=== PATIENT | female | born 1975 | race Caucasian/White ===

== ENCOUNTER 2018-02-22 10:11 | Observation (INO) | payer SELFPAY ==
[~2018-02-22] VITALS: Ht 165.1 cm; Wt 115.0 kg
[2018-02-22] VITALS (7 sets, daily range): BP systolic 120–170; BP diastolic 71–101; PULSE 94–115; RESP 18–20; TEMP 97.3–98.5; O2SAT 98–100
[~2018-02-22 10:11] MED LIST: PENI500T PO; Z.0.NO CURRENT MEDS
[2018-02-22] MEDS ORDERED: IBUP200C (10:16)
[2018-02-22] MEDS ORDERED: TYLE325T PO (10:16)
[2018-02-22] MEDS ORDERED: ASPI81CH7 CHEW (10:16)
[2018-02-22] MEDS ORDERED: LORazepam 2 MG/ML VIAL IV PUSH SCH (10:30)
[2018-02-22] MEDS ORDERED: ASPIRIN 81 MG CHEW TAB PO ONE (10:30)
[2018-02-22] MEDS ORDERED: SODIUM CHLORIDE 0.9% FLUSH 10 ML FLUSH IVF PRN (10:30)
[2018-02-22 10:32] LABS: AUTOMATED NEUTROPHIL # 8.2 TH/MM3 (1.8-7.7); BASOPHIL # 0.2 TH/MM3 (0-0.2); BASOPHIL % 1.2 % (0.0-2.0); EOSINOPHIL # 0.5 TH/MM3 (0-0.4); EOSINOPHIL % 3.3 % (0.0-4.0); HEMATOCRIT 42.6 % (35.0-46.0); HEMOGLOBIN 14.6 GM/DL (11.6-15.3); LYMPH % 31.7 % (9.0-44.0); LYMPHOCYTE # 4.4 TH/MM3 (1.0-4.8); MEAN CELL VOLUME 84.8 FL (80.0-100.0); MEAN CORPUSCULAR HGB CONC 34.2 % (32.0-36.0); MEAN PLATELET VOLUME 8.5 FL (7.0-11.0); MONO % 4.1 % (0.0-8.0); MONOCYTE # 0.6 TH/MM3 (0-0.9); NEUT % 59.7 % (16.0-70.0); PLATELET COUNT 353 TH/MM3 (150-450); RED BLOOD COUNT 5.02 MIL/MM3 (4.00-5.30); RED CELL DISTRIBUTION WIDTH 13.2 % (11.6-17.2); WHITE BLOOD COUNT 13.9 TH/MM3 (4.0-11.0)
[2018-02-22 10:43] LABS: CHLORIDE 102 MEQ/L (98-107); SODIUM (NA) 137 MEQ/L (136-145)
[2018-02-22 10:47] LABS: BICARBONATE 24.7 MEQ/L (21.0-32.0); CALCIUM 8.8 MG/DL (8.5-10.1); GLUCOSE,RANDOM 94 MG/DL (74-106)
[2018-02-22 10:48] LABS: BLOOD UREA NITROGEN 12 MG/DL (7-18)
[2018-02-22 10:51] LABS: CREATININE 0.95 MG/DL (0.50-1.00); GLOMERULAR FILTRATION RATE 65 ML/MIN (>89)
--- NOTE | 2018-02-22 10:53 | RADRPT ---
EXAM DATE/TIME: 02/22/2018 10:32 [place] COMPARISON: No previous studies available for comparison. INDICATIONS : Chest and upper back pain. MEDICAL HISTORY : None. SURGICAL HISTORY : None. ENCOUNTER: Initial ACUITY: 3 days PAIN SCORE: 8/10 LOCATION: Bilateral chest FINDINGS: A single view of the chest demonstrates the lungs to be symmetrically aerated without evidence of mas s, infiltrate or effusion. The cardiomediastinal contours are unremarkable. Osseous structures are intact. CONCLUSION: No acute intrathoracic disease. Baljinder Garner MD on February 22, 2018 at 10:51 Board Certified Radiologist. This report was verified electronically.
[2018-02-22 10:56] LABS: TROPONIN I LESS THAN 0.02 NG/ML (0.02-0.05)
--- NOTE | 2018-02-22 10:59 | PD ---
HPI . Chest pain Chief Complaint: Chest Pain Time Seen by Provider: 10:17 Travel History International Travel<30 days: No Contact w/Intl Traveler<30days: No Traveled to known affect area: No History of Present Illness HPI This patient presents with a four-day history of chest pain. It has been intermittent. It became worse last night. She describes a pressure-like sensation which she rates 9/10. She states that the pain radiates through to her back. Her chest pain is associated with tingling in her hands and the sensation that her throat was swelling. She also reports the urge to burp, occasional cough and dizziness. She states that she took aspirin last night with no relief of her symptoms. PFSH Past Medical History Diminished Hearing: No Influenza Vaccination: No ?: Not LMP: 02/17/2018 : 1 Para: 1 Past Surgical History Tonsillectomy: Yes Social History Alcohol Use: Yes (OCCASSIONAL) Tobacco Use: No Substance Use: No Allergies-Medications (Allergen,Severity, Reaction): Coded Allergies: No Known Allergies (Verified Adverse Reaction, Unknown, 02/22/18) Reported Meds & Prescriptions Reported Meds & Active Scripts Active Reported Tylenol (Acetaminophen) 325 Mg Tab 0 PO Q4H PRN Aspirin Children's (Aspirin) 81 Mg Chew 81 Mg CHEW DAILY Ibuprofen 200 Mg Cap 200 Mg Q4H PRN Review of Systems Except as stated in HPI: all other systems reviewed are Neg General / Constitutional: No: Fever, Chills HENT: Positive: Lightheadedness Cardiovascular: Positive: Chest Pain or Discomfort Respiratory: Positive: Cough Neurologic: Positive: Paresthesia Physical Exam Narrative GENERAL: Patient looks very anxious. SKIN: warm/dry. Normal color. HEAD: Normocephalic. Atraumatic. EYES: Pupils equal and round. No scleral icterus. No injection or drainage. ENT: No nasal bleeding or discharge. Mucous membranes pink and moist. NECK: Trachea midline. Full range of motion without pain.. CARDIOVASCULAR: Sinus tachycardia. Heart sounds normal. RESPIRATORY: No accessory muscle use. Clear to auscultation. Breath sounds equal bilaterally. GASTROINTESTINAL: Abdomen soft. Nontender. Bowel sounds present. Nondistended. MUSCULOSKELETAL: No obvious deformities. NEUROLOGICAL: Awake and alert. No obvious cranial nerve deficits. Motor grossly within normal limits. Normal speech. PSYCHIATRIC: Appropriate mood and affect; insight and judgment normal. Data Data Last Documented VS Vital Signs Date Time Temp Pulse Resp B/P (MAP) Pulse Ox O2 Delivery O2 Flow Rate FiO2 02/22/18 11:16 105 18 123/71 (88) 99 02/22/18 10:29 Room Air 02/22/18 10:12 98.0 Orders Orders Electrocardiogram (02/22/18 10:17) Basic Metabolic Panel (Bmp) (02/22/18 10:17) Complete Blood Count With Diff (02/22/18 10:17) Magnesium (Mg) (02/22/18 10:17) Troponin I (02/22/18 10:17) Chest, Single Ap (02/22/18 10:17) Ecg Monitoring (02/22/18 10:17) Iv Access Insert/Monitor (02/22/18 10:17) Oximetry (02/22/18 10:17) Aspirin Chew (Aspirin Chew) (02/22/18 10:30) Sodium Chloride 0.9% Flush (Ns Flush) (02/22/18 10:30) Lorazepam Inj (Ativan Inj) (02/22/18 10:30) Morphine Inj (Morphine Inj) (02/22/18 11:15) Ondansetron Inj (Zofran Inj) (02/22/18 11:15) Admit Order (Ed Use Only) (02/22/18 ) Labs Laboratory Tests Test 02/22/18 10:25 White Blood Count 13.9 TH/MM3 Red Blood Count 5.02 MIL/MM3 Hemoglobin 14.6 GM/DL Hematocrit 42.6 % Mean Corpuscular Volume 84.8 FL Mean Corpuscular Hemoglobin 29.0 PG Mean Corpuscular Hemoglobin Concent 34.2 % Red Cell Distribution Width 13.2 % Platelet Count 353 TH/MM3 Mean Platelet Volume 8.5 FL Neutrophils (%) (Auto) 59.7 % Lymphocytes (%) (Auto) 31.7 % Monocytes (%) (Auto) 4.1 % Eosinophils (%) (Auto) 3.3 % Basophils (%) (Auto) 1.2 % Neutrophils # (Auto) 8.2 TH/MM3 Lymphocytes # (Auto) 4.4 TH/MM3 Monocytes # (Auto) 0.6 TH/MM3 Eosinophils # (Auto) 0.5 TH/MM3 Basophils # (Auto) 0.2 TH/MM3 CBC Comment DIFF FINAL Differential Comment Blood Urea Nitrogen 12 MG/DL Creatinine 0.95 MG/DL Random Glucose 94 MG/DL Calcium Level 8.8 MG/DL Magnesium Level 2.0 MG/DL Sodium Level 137 MEQ/L Potassium Level 4.4 MEQ/L Chloride Level 102 MEQ/L Carbon Dioxide Level 24.7 MEQ/L Anion Gap 10 MEQ/L Estimat Glomerular Filtration Rate 65 ML/MIN Troponin I LESS THAN 0.02 NG/ML MDM Medical Decision Making Medical Screen Exam Complete: Yes Emergency Medical Condition: Yes Interpretation(s) EKG shows a sinus tachycardia at [address] segment elevation or depression. Differential Diagnosis Differential diagnosis of chest pain includes but is not limited to musculoskeletal pain, pulmonary embolism, acute coronary syndrome, pneumonia, pleurisy Narrative Course This patient presents with chest pain. She has had intermittent chest pain for the last 4 days which has been getting progressively worse. She appears very anxious. So, in addition to aspirin, I have given her Ativan. She has been placed on the monitor, an IV has been started and a cardiac workup is in process. Last Impressions Chest X-Ray 02/22/18 1017 Signed Impressions: Service Date/Time: Thursday, February 22, 2018 10:32 - CONCLUSION: No acute intrathoracic disease. Baljinder Garner MD CBC & BMP Diagram 02/22/18 10:25 Calcium Level 8.8, Magnesium Level 2.0 trop < 0.02 The patient and her family are very anxious and did not want to leave here until the exact diagnosis is not known. I have offered admission to the chest pain center. They are in agreement. Physician Communication Physician Communication Dr. Pham will admit the patient to the chest pain center. Diagnosis Primary Impression: Chest pain Qualified Codes: R07.9 - Chest pain, unspecified Admitting Information Admitting Physician Requests: Observation Condition: Stable Grace Her MD Feb 22, 2018 10:59
[2018-02-22] MEDS ORDERED: MORPHINE SULFATE 4 MG/ML INJ IV ONE (11:15)
[2018-02-22] MEDS ORDERED: ONDANSETRON HCL 4 MG/2 ML VIAL IV PUSH ONE (11:15)
[2018-02-22] MEDS ORDERED: SODIUM CHLORIDE 0.9% FLUSH 10 ML FLUSH IV FLUSH PRN (12:30)
[2018-02-22] MEDS: SODIUM CHLOR 0.9% 1000 ML INJ 1,000 ML IV SCH ×2 (12:30→14:43)
[2018-02-22] MEDS ORDERED: ACETAMINOPHEN 500 MG CPLT PO PRN (12:30)
[2018-02-22] MEDS ORDERED: MORPHINE SULFATE 2 MG/ML INJ IV PUSH PRN (12:30)
[2018-02-22] MEDS ORDERED: NITROGLYCERIN 0.4 MG SL 25 TABS/BTL SL PRN (12:30)
[2018-02-22] MEDS ORDERED: ACETAMINOPHEN/HYDROcodone 325 MG/7.5 MG TAB PO PRN (12:30)
[2018-02-22] MEDS ORDERED: ONDANSETRON HCL 4 MG/2 ML VIAL IV PUSH PRN (12:30)
[2018-02-22] MEDS ORDERED: PANTOPRAZOLE SOD 40 MG DELAYED RELEASE TAB PO SCH (13:45)
[2018-02-22] MEDS ORDERED: ALUMINUM/MAGNESIUM/SIMETH 30 ML CUP PO ONE (14:00)
[2018-02-22] MEDS ORDERED: diphenhydrAMINE HCL ELIXIR 12.5 MG/5 ML CUP PO ONE (14:00)
[2018-02-22] MEDS ORDERED: LIDOCAINE VISCOUS 2% SOLN 15 ML UDC SWISH-SWAL ONE (14:00)
[2018-02-22 14:06] LABS: TROPONIN I LESS THAN 0.02 NG/ML (0.02-0.05)
--- NOTE | 2018-02-22 14:07 | HHI.HP ---
HPI Service [facility] Primary Care Physician No Primary Care Physician Admission Diagnosis chest pain Diagnoses: (1) Chest pain Diagnosis: Principal Chief Complaint: Chest pain Travel History International Travel<30 Days: No Contact w/Intl Traveler <30 Da: No Traveled to Known Affected Are: No History of Present Illness 42-year-old female with no history of any medical issues who presented the hospital because of a four-day history of intermittent chest discomfort. Patient states that the pain is located in her epigastric midsternal area radiating into her back. She states that it can get up to a 10/ 10 on a pain scale. She indicates that it is worse whenever she eats food, worse whenever she lays flat, states that she feels like she always has to belch but nothing happens. She has had some nausea, some lightheadedness. Denies any vomiting, shortness of breath, dyspnea. Pain is not exacerbated by any exertion. Patient was evaluated in emergency department and plans were for her to be discharged home, however family is concerned that there is underlying issues and requested that the patient be observed in the hospital for further workup and management. Patient indicates that she has never undergone any type of cardiac workup in the past. Patient's only risk factor for underlying cardiac disease is body habitus with BMI 42.2. Patient was given morphine and aspirin emergency department without any relief. Review of Systems Cardiovascular: COMPLAINS OF: Chest pain Except as stated in HPI: all other systems reviewed are Neg Past Family Social History Past Medical History Herniated disc L5 Past Surgical History Tonsillectomy Reported Medications Reported Meds & Active Scripts Active Reported Tylenol (Acetaminophen) 325 Mg Tab 0 PO Q4H PRN Aspirin Children's (Aspirin) 81 Mg Chew 81 Mg CHEW DAILY Ibuprofen 200 Mg Cap 200 Mg Q4H PRN Allergies: Coded Allergies: No Known Allergies (Verified Allergy, Unknown, 02/22/18) Family History Reviewed is significant for mother with COPD. No family history of heart disease, diabetes, cancer, seizure, stroke Social History Patient denies any tobacco, alcohol or illicit drug Physical Exam Vital Signs Vital Signs Date Time Temp Pulse Resp B/P (MAP) Pulse Ox O2 Delivery O2 Flow Rate FiO2 02/22/18 13:27 99 21 02/22/18 11:52 02/22/18 11:23 99 Room Air 99 02/22/18 11:22 18 02/22/18 11:16 105 18 123/71 (88) 99 02/22/18 10:29 97 18 162/88 (112) 99 Room Air 02/22/18 10:19 115 02/22/18 10:12 98.0 115 20 170/101 (124) 100 Physical Exam GENERAL: Well-developed, obese with BMI 42.2, in no acute distress. alert and orientated HEENT: Head is normocephalic without any lesions or masses noted. Facial features are symmetric. Eyes: Pupils equal round reactive to light. Extraocular muscles are intact. Conjunctivae were clear. Oropharyngeal: Pharynx without any erythema edema. Tongue is midline without deviation. Buccal mucosa is moist without any masses or lesions NECK: Supple without any masses. Trachea midline no deviation. No JVD, no bruits are appreciated CARDIAC: Regular rhythm, regular rate. S1/S2 are heard. No murmurs gallops or rubs. LUNGS: Clear to auscultation bilaterally. No wheeze, rhonchi or rales. No use of accessory muscles on inspiration or expiration. ABDOMEN: Soft, nontender. Nondistended. Bowel sounds heard in all 4 quadrants. No organomegaly or masses. Negative rebound, negative guarding EXTREMITIES: No edema, pulses are equal bilaterally. No cyanosis or clubbing NEUROLOGY: Mood and affect appear appropriate. Cranial nerves II through XII grossly intact. Muscle strength 5/5 in upper and lower extremities bilaterally. Deep tendon reflexes are 2+ in upper and lower extremities bilaterally. Laboratory Laboratory Tests Test 02/22/18 10:24 02/22/18 10:25 02/22/18 13:00 02/22/18 13:04 Lipase 136 White Blood Count 13.9 Red Blood Count 5.02 Hemoglobin 14.6 Hematocrit 42.6 Mean Corpuscular Volume 84.8 Mean Corpuscular Hemoglobin 29.0 Mean Corpuscular Hemoglobin Concent 34.2 Red Cell Distribution Width 13.2 Platelet Count 353 Mean Platelet Volume 8.5 Neutrophils (%) (Auto) 59.7 Lymphocytes (%) (Auto) 31.7 Monocytes (%) (Auto) 4.1 Eosinophils (%) (Auto) 3.3 Basophils (%) (Auto) 1.2 Neutrophils # (Auto) 8.2 Lymphocytes # (Auto) 4.4 Monocytes # (Auto) 0.6 Eosinophils # (Auto) 0.5 Basophils # (Auto) 0.2 CBC Comment DIFF FINAL Differential Comment Blood Urea Nitrogen 12 Creatinine 0.95 Random Glucose 94 Calcium Level 8.8 Magnesium Level 2.0 Sodium Level 137 Potassium Level 4.4 Chloride Level 102 Carbon Dioxide Level 24.7 Anion Gap 10 Estimat Glomerular Filtration Rate 65 Troponin I LESS THAN 0.02 Result Diagram: 02/22/18 1025 02/22/18 1025 Imaging Last Impressions Chest X-Ray 02/22/18 1017 Signed Impressions: Service Date/Time: Thursday, February 22, 2018 10:32 - CONCLUSION: No acute intrathoracic disease. MD Mick Green VTE Risk Assessment Mick VTE Risk Assessment: No/Low Risk (score <= 1) Caprini Risk Assessment Model Point Value = 1 Point Value = 2 Point Value = 3 Point Value = 5 Age 41-60 Minor surgery BMI > 25 kg/m2 Swollen legs Varicose veins or History of unexplained or recurrent spontaneous Oral contraceptives or hormone replacement Sepsis (< 1 month) Serious lung disease, including pneumonia (< 1 month) Abnormal pulmonary function Acute myocardial infarction Congestive heart failure (< 1 month) History of inflammatory bowel disease Medical patient at bed rest Age 61-74 Arthroscopic surgery Major open surgery (> 45 min) Laparoscopic surgery (> 45 min) Malignancy Confined to bed (> 72 hours) Immobilizing plaster cast Central venous access Age >= 75 History of VTE Family history of VTE Factor V Leiden Prothrombin [id number] Lupus anticoagulant Anticardiolipin antibodies Elevated serum homocysteine Heparin-induced thrombocytopenia Other congenital or acquired thrombophilia Stroke (< 1 month) Elective arthroplasty Hip, pelvis, or leg fracture Acute spinal cord injury (< 1 month) Prophylaxis Regimen Total Risk Factor Score Risk Level Prophylaxis Regimen 0-1 Low Early ambulation 2 Moderate Order ONE of the following: *Sequential Compression Device (SCD) *Heparin 5000 units SQ BID 3-4 Higher Order ONE of the following medications: *Heparin 5000 units SQ TID *Enoxaparin/Lovenox 40 mg SQ daily (WT < 150 kg, CrCl > 30 mL/min) *Enoxaparin/Lovenox 30 mg SQ daily (WT < 150 kg, CrCl > 10-29 mL/min) *Enoxaparin/Lovenox 30 mg SQ BID (WT < 150 kg, CrCl > 30 mL/min) AND/OR *Sequential Compression Device (SCD) 5 or more Highest Order ONE of the following medications: *Heparin 5000 units SQ TID (Preferred with Epidurals) *Enoxaparin/Lovenox 40 mg SQ daily (WT < 150 kg, CrCl > 30 mL/min) *Enoxaparin/Lovenox 30 mg SQ daily (WT < 150 kg, CrCl > 10-29 mL/min) *Enoxaparin/Lovenox 30 mg SQ BID (WT < 150 kg, CrCl > 30 mL/min) AND *Sequential Compression Device (SCD) Assessment and Plan Assessment and Plan Chest pain/epigastric pain Unknown etiology at this time, low probability of underlying cardiac disease Patient be ruled out for acute coronary event with serial cardiac enzymes that are negative thus far Serial EKGs have been performed which does show sinus rhythm, there are Q waves in lead II and aVF, could be secondary to body habitus Will give patient GI cocktail to see if pain is improved Start Protonix 40 mg daily Exercise stress test was performed which did not indicate any signs of ischemia Continue aspirin, nitroglycerin as needed, Turner and morphine for pain control stat d-dimer was negative DVT prevention Sequential compression devices Discharge disposition Discharge home in stable condition Activity: Ad michael. Diet: Regular diet Medication per medication reconciliation Follow-up with primary medical doctor in 1 week Problem Qualifiers (1) Chest pain: Qualified Codes: R07.9 - Chest pain, unspecified Ollie Lobato Feb 22, 2018 14:07
[2018-02-22] MEDS ORDERED: PANT40TA3 PO (16:03)
--- NOTE | 2018-02-22 16:03 | HHI.DCPOC ---
Discharge Care Plan Diagnosis: (1) Chest pain Goals to Promote Your Health * To prevent worsening of your condition and complications * To maintain your health at the optimal level Directions to Meet Your Goals Take your medications as prescribed Follow your dietary instruction Follow activity as directed Keep your appointments as scheduled Take your immunizations and boosters as scheduled If your symptoms worsen call your PCP, if no PCP go to Urgent Care Center or Emergency Room Smoking is Dangerous to Your Health. Avoid second hand smoke Call the 24-hour hour crisis hotline for domestic abuse at Ollie Lobato Feb 22, 2018 16:03
[2018-02-22 16:37] LABS: TROPONIN I LESS THAN 0.02 NG/ML (0.02-0.05)
--- NOTE | 2018-02-22 16:39 | EKG ---
Date Performed: 02/22/2018 Time Performed: 10:14:54 PTAGE: 42 years EKG: SINUS TACHYCARDIA LOW QRS VOLTAGE IN PRECORDIAL LEADS MINIMAL ST DEPRESSION ABNORMAL RHYTHM ECG NO PREVIOUS TRACING DOCTOR: Erik Franklin Interpretating Date/Time 02/22/2018 16:37:36
--- NOTE | 2018-02-22 16:44 | EKG ---
Date Performed: 02/22/2018 Time Performed: 13:23:12 PTAGE: 42 years EKG: Sinus rhythm NORMAL ECG PREVIOUS TRACING : 02/22/2018 10.14 Since previous tracing, no significant change noted DOCTOR: Erik Franklin Interpretating Date/Time 02/22/2018 16:40:38
--- NOTE | 2018-02-22 16:45 | TR ---
Date Performed: 02/22/2018 Time Performed: 15:11:38 DOCTOR: Erik Franklin DRUG LIST: CLINICAL HISTORY: REASON FOR TEST: REASON FOR ENDING: Completed Protocol Fatigue OBSERVATION: Chest Pain: None Arrhythmia: None CONCLUSION: Patient tolerateed BRITTANY protocol with Total Exercise Time=1:46 Maximum JU=207 % Max HR Achieved=86.0% Maximum NK=122/105, Patient had constant pain boefore, during and after procedure. Testing stopped secondary goals acheived and physical condition. During peak exercise, quick upslopi ng ST segments. HR and BP appropriate response to exercise, Recovery period, HR and BP returned to ba seline COMMENTS: Patient exercised using the Brittany protocol. No electrocardiographic changes were seen to suggest ischemia. Hemodynamic response to exercise was normal. No significant arrhythmia was prese nt.
[2018-02-22] MEDS ORDERED: SODIUM CHLORIDE 0.9% FLUSH 10 ML FLUSH IV FLUSH SCH (21:00)
[2018-02-23] MEDS ORDERED: ASPIRIN 325 MG TAB PO SCH (09:00)
== END 2018-02-22 18:51 | disposition home or self-care (01) ==
LOC: PHED 10:11 → PHEDA 11:21 → PH3A 11:49
PROVIDERS: ADMIT Hospitalist; ATTEND Hospitalist
DX: R07.9 Chest pain, unspecified (principal); R10.13 Epigastric pain; R11.0 Nausea; R42 Dizziness and giddiness; R00.0 Tachycardia, unspecified; R94.31 Abnormal electrocardiogram [ECG] [EKG]; Z79.82 Long term (current) use of aspirin; R20.0 Anesthesia of skin; R05 Cough; E66.9 Obesity, unspecified; Z68.41 Body mass index [BMI] 40.0-44.9, adult
CPT/HCPCS: 71045; 80048; 80307; 82550; 83690; 83735; 84484; 85025; 85379; 93005; 93017; 96374; 96375; 99285; G0378; J2060; J2270; J2405; J7030